=== PATIENT | female | born 1995 | race Caucasian/White ===

== ENCOUNTER 2018-01-10 12:57 | Emergency (ER) | END 2018-01-10 15:23 | disposition home or self-care (01) ==

== ENCOUNTER 2018-06-06 17:14 | Emergency (ER) | payer OTHER ==
[~2018-06-06] VITALS: Ht 160 cm; Wt 57.3 kg
[~2018-06-06 17:14] MED LIST: MECL12.574 PO; NAPR-985 PO
[2018-06-06 17:20] VITALS: Ht 160 cm; Wt 57.3 kg
[2018-06-06] MEDS ORDERED: D ME PO (19:52)
[2018-06-06] MEDS ORDERED: AZIT500T3 PO (19:52)
[2018-06-06] MEDS ORDERED: IBUP-1542 PO (19:52)
--- NOTE | 2018-06-06 19:58 | ERD ---
ER Documentation Chief Complaint Chief Complaint sinus headache and right ear pain since yesterday HPI 23-year-old female presents with cough congestion and frontal headache and pain in her maxillary sinus area for the last 3 days. She has a history of sinusitis. Denies any fevers. Denies any vomiting, abdominal pain, diarrhea. Denies any chest pain or shortness of breath. ROS All systems reviewed and are negative except as per history of present illness. Medications Home Meds Active Scripts Azithromycin* (Zithromax*) 500 Mg Tablet, 500 MG PO DAILY for 3 Days, TAB Prov:MEREDITH KIM MD 06/06/18 Ibuprofen* (Motrin*) 600 Mg Tab, 600 MG PO Q6, #16 TAB Prov:MEREDITH KIM MD 06/06/18 D-Methorphan/PE/Acetaminophen (Sudafed PE Pressure+Pain+Cough) 1 Each Tablet, 1 EACH PO BID for 7 Days, #14 TAB Prov:MEREDITH KIM MD 06/06/18 Meclizine Hcl* (Antivert*) 12.5 Mg Tab, 12.5 MG PO Q6H PRN for DIZZINESS, #20 TAB Prov:CARLY SR PA-C 01/10/18 Naproxen* (Naprosyn*) 500 Mg Tablet, 500 MG PO BID PRN for PAIN AND/OR INFLAMMATION, #30 TAB Prov:CARLY SRC 01/10/18 Allergies Allergies: Coded Allergies: Penicillins (Verified Allergy, Intermediate, 01/10/18) PMhx/Soc Medical and Surgical Hx: pt denies Medical Hx, pt denies Surgical Hx History of Surgery: No Anesthesia Reaction: No Hx Neurological Disorder: No Hx Respiratory Disorders: No Hx Cardiac Disorders: No Hx Psychiatric Problems: No Hx Miscellaneous Medical Probl: No Hx Alcohol Use: No Hx Substance Use: No Hx Tobacco Use: No Smoking Status: Never smoker FmHx Family History: No diabetes, No coronary disease, No other Physical Exam Vitals Vital Signs Date Temp Pulse Resp B/P (MAP) Pulse Ox O2 O2 Flow FiO2 Time Delivery Rate 06/06/18 98.4 101 18 135/79 99 17:20 (97) Physical Exam Const: No acute distress Head: Atraumatic Eyes: Normal Conjunctiva ENT: Normal External Ears, Nose and Mouth. TMs normal. Tender maxillary sinuses and 3+ nasal congestion. Postnasal drip. Neck: Full range of motion. No meningismus. Resp: Clear to auscultation bilaterally Cardio: Regular rate and rhythm, no murmurs Abd: Soft, non tender, non distended. Normal bowel sounds Skin: No petechiae or rashes Back: No midline or flank tenderness Ext: No cyanosis, or edema Neur: Awake and alert Psych: Normal Mood and Affect Procedures/MDM Patient presents with 3-day history of sinus pain, URI symptoms. She may have early viral URI. Given her history of sinusitis we will treat symptomatically primarily with Sudafed, and ibuprofen. She will be given a prescription of Zithromax 500 mg 3 times a day but encouraged to hold for 3-4 days to allow viral illness to resolve. She may take biotics for sinusitis symptoms which worsen despite conservative treatment. Patient agrees with the plan. The patient was stable with no new complaints during the ER course. Clinically, there is no current evidence to suggest meningitis, sepsis, acute abdomen, pneumonia, stroke, acute coronary syndrome, pulmonary embolism, aortic dissection or any other emergent condition appearing to require further evaluation or hospitalization. Patient counseled regarding my diagnostic impression and care plan. Prior to discharge all questions answered. Pt agrees with treatment plan and understands strict return precautions. Pt is instructed to follow up with primary care provider within 24-48 hours. Precautionary instructions provided including instructions to return to the ER if not improving or for any worsening or changing symptoms or concerns. Departure Diagnosis: Primary Impression: URI, acute Additional Impression: Headache Headache type: unspecified Headache chronicity pattern: unspecified pattern Intractability: not intractable Qualified Codes: R51 - Headache Condition: Stable Patient Instructions: Sinusitis, Abx Tx, Sinusitis, No Abx Additional Instructions: To be viral illness. Okay to hold antibiotics for 3-4 days to take for worsening symptoms otherwise allow viral illness to resolve. Recheck otherwise for new or worsening symptoms. MEREDITH KIM MD Jun 06, 2018 19:58
[2018-06-06 20:23] VITALS: BP 116/74; PULSE 100; RESP 19
== END 2018-06-06 20:24 | disposition home or self-care (01) ==
LOC: FTE 17:14
DX: J06.9 Acute upper respiratory infection, unspecified (principal)
CPT/HCPCS: 99283

== ENCOUNTER 2019-01-09 17:49 | Emergency (ER) | payer OTHER ==
[~2019-01-09] VITALS: Ht 157.5 cm; Wt 55.5 kg
[~2019-01-09 17:49] MED LIST changes: +AZIT500T3 PO; +CEPH-443 PO; +D ME PO; +IBUP-1542 PO; +MUPI22OI2 TOP
[2019-01-09 18:22] VITALS: BP 113/63; PULSE 93; RESP 18; Ht 157.5 cm; Wt 55.5 kg
[2019-01-09] MEDS ORDERED: IBUPROFEN 600 MG TAB PO ONE (20:00)
== END 2019-01-09 19:44 | disposition home or self-care (01) ==
LOC: FTE 17:49
DX: S70.362A Insect bite (nonvenomous), left thigh, initial encounter (principal); L03.116 Cellulitis of left lower limb; W57.XXXA Bitten or stung by nonvenomous insect and other nonvenomous arthropods, initial encounter
CPT/HCPCS: Z7502; Z7610; 99283